=== PATIENT | female | born 2000 | race Hispanic/Latino ===

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

== ENCOUNTER 2022-12-11 20:06 | Emergency (ER) | payer OTHER ==
[~2022-12-11] VITALS: Ht 165.1 cm; Wt 77.1 kg
[2022-12-11 20:24] VITALS: O2SAT 100
[2022-12-11] MEDS ORDERED: NAPROSYN500 MG PO (21:39)
[2022-12-11] MEDS ORDERED: AUGMENTIN 500-1 EACH PO (21:39)
[2022-12-11] MEDS ORDERED: CEFTRIAXONE 1 GM VIAL ONE (21:41)
[2022-12-11] MEDS ORDERED: CEFTRIAXONE 1 GM VIAL IM ONE (21:45)
== END 2022-12-11 22:20 | disposition home or self-care (01) ==
LOC: FSED 20:23
DX: R51.9 Headache, unspecified (principal); J01.90 Acute sinusitis, unspecified; R00.2 Palpitations
CPT/HCPCS: 70450; 81025; 93005; 99283; J0696

== ENCOUNTER 2025-02-14 17:09 | Emergency (ER) | payer SELFPAY ==
[~2025-02-14] VITALS: Ht 167.6 cm; Wt 84.9 kg
[~2025-02-14 17:09] MED LIST: AUGMENTIN 500-1 EACH PO; NAPROSYN500 MG PO
[2025-02-14] MEDS ORDERED: ONDANSETRON HCL 4 MG ORAL DISINTEGRATING TAB ONE (18:08)
[2025-02-14] MEDS: ONDANSETRON HCL 4 MG ORAL DISINTEGRATING TAB PO ONE (18:34)
[2025-02-14] MEDS: KETOROLAC TROMETHAMINE 30 MG/ML VIAL IV STA (19:31)
[2025-02-14] MEDS: FAMOTIDINE 20 MG/2 ML VIAL IV STA (19:31)
[2025-02-14] MEDS ORDERED: IOPAMIDOL 370 MG/ML 100 ML INFUS..BTL INJ ONE (19:41)
[2025-02-14] MEDS: SODIUM CHLORIDE 0.9% 1000ML 1,000 ML IV ONE (20:59)
[2025-02-14 22:36] VITALS: PULSE 72; RESP 16; TEMP 97.9
[2025-02-14 22:49] VITALS: BP 111/55; PULSE 72; RESP 11; TEMP 97.9; O2SAT 98
== END 2025-02-14 22:52 | disposition other institution (70) ==
LOC: FSED 17:51
DX: R10.13 Epigastric pain (principal); K35.80 Unspecified acute appendicitis; R11.2 Nausea with vomiting, unspecified
CPT/HCPCS: 74177; 80048; 80076; 81003; 81025; 85025; 96374; 96375; 99284; J1308; J1885; J2543; J7030; Q0162; Q9967